=== PATIENT | male | born 1980 | race Caucasian/White ===

== ENCOUNTER 2020-11-29 06:31 | Day surgery (SDC) | payer BC ==
[2020-11-29] MEDS: Sodium Chloride 0.9% 1,000 ML IV SCH (07:11)
[2020-11-29] MEDS ORDERED: Midazolam 1 MG/ML 2 ML SDV ONE (07:26)
[2020-11-29] MEDS ORDERED: fentaNYL 100 MCG/2 ML SDV ONE (07:26)
[2020-11-29] MEDS ORDERED: Propofol 200 MG/20 ML SDV ONE (07:26)
--- NOTE | 2020-11-29 10:09 | OR ---
DATE OF PROCEDURE: 11/29/2020 SURGEON: Matt Begum MD PROCEDURE: Esophagogastroduodenoscopy. FINDINGS: Very mild inflammation at GE junction (biopsied in all 4 quadrants using cold biopsy forceps). COMPLICATIONS: None. TURNAROUND ENGINEER: None. PREOPERATIVE DIAGNOSIS: Abdominal pain. POSTOPERATIVE DIAGNOSIS: Abdominal pain. RISKS: Risks, benefits, alternatives, and limitations including, but not limited to infection, bleeding, perforation, false positives, false negatives, and other risks not listed here were explained to the patient who wished to proceed. PROCEDURE IN DETAIL: The patient was placed in left lateral decubitus position. The EGD scope was introduced and advanced atraumatically to the second part of the duodenum. No evidence of duodenitis or ulceration was noted. Within the stomach itself, there was no gastritis or ulceration. No old or new blood. No hiatal hernia. The GE junction showed some very mild inflammation. This area was biopsied along with all 4 quadrants. The air was removed from the stomach. The esophagus was normal. No mucosal abnormalities. No inflammation. No concerns. Very mild inflammation and biopsy performed for evaluation of gastroesophageal reflux disease. The patient tolerated the procedure well. Matt Begum MD /[id number]
== END 2020-11-29 09:55 | disposition home or self-care (01) ==
LOC: JP.SDS 06:31
PROVIDERS: ATTEND Surgery
DX: K31.89 Other diseases of stomach and duodenum (principal); Z88.5 Allergy status to narcotic agent
CPT/HCPCS: J2250; J2704; J3010; J7030